=== PATIENT | male | born 1985 | race Native Hawaiian/Other Pacific Islander ===

== ENCOUNTER → 2018-05-13 | Outpatient (CLI) | payer SELFPAY ==
--- NOTE | 2018-05-13 09:05 | US ---
EXAMINATION TYPE: US liver DATE OF EXAM: 05/13/2018 COMPARISON: CT abdomen pelvis 12/14/2012 CLINICAL HISTORY: R94.5 Abnormal results of liver function studies. EXAM MEASUREMENTS: Liver Length: 15.3 cm Gallbladder Wall: 0.2 cm CBD: 0.5 cm Right Kidney: 10.1 x 5.4 x 5.5 cm Technically difficult study due to body habitus and bowel gas. Pancreas: not well visualized due to midline bowel gas Liver: difficult to penetrate, loss of vascular landmarks Gallbladder: No stones seen Evidence for sonographic Bell's sign: No CBD: wnl Right Kidney: No hydronephrosis or masses seen IMPRESSION: 1. Mild fatty infiltration of the liver.
== END | disposition home or self-care (01) ==
LOC: RADUSWWP 07:27
PROVIDERS: ATTEND Family Medicine
DX: K76.0 Fatty (change of) liver, not elsewhere classified (principal)
CPT/HCPCS: 76705